=== PATIENT | female | born 1965 | race Caucasian/White ===

== ENCOUNTER 2024-01-29 08:08 | Outpatient (CLI) | payer BC, SELFPAY | END 2024-01-29 08:09 | disposition home or self-care (01) | LOC: ANHAUDASC 08:09 | PROVIDERS: PCP Family Medicine; Visit Provider Family Medicine | DX: H91.90 Unspecified hearing loss, unspecified ear (principal) | CPT/HCPCS: 92557; 92567 ==

== ENCOUNTER 2024-05-29 01:14 | Day surgery (SDC) | payer BC, SELFPAY ==
[2024-05-19 14:55] VITALS: BMI 29.5
--- OUTSIDE RECORDS SUMMARY | 2024-05-29 01:17 | XMS_ITS | Clinical Summary ---
Author Organization [facility] [employer] Address [address] 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 This disclosure is being madepursuant to the Care Everywhere program and may not contain all information available regarding this patient. Last updated 17.[facility] Allergies Active Allergy Reactions Criticality Noted Date Comments Sulfa Drugs Rash Medium 05/28/2013 Medications * Be aware that medications may not be up to date on this document. Alwaysverify current medications with the patient. Medication Sig Dispensed Refills Start Date End Date Status vitamin D, cholecalciferol, 2000 UNITS tablet Take 1 (one) tablet by mouth DAILY 12/11/2016 Active cycloSPORINE (RESTASIS) 0.05 % ophthalmic suspension 1 (one) drop by Ophthalmic route 2 times daily Active omeprazole (PRILOSEC) 20 MG capsule Take 1 (one) capsule by mouth as needed 05/18/2015 Active mometasone (NASONEX) 50 MCG/ACT nasal spray Calvin 1 (one) spray into each nostril once daily as needed 10/07/2017 Active FLUoxetine (PROZAC) 20 MG capsule 09/15/2019 Active valACYclovir (Valtrex) 1 GM tablet TAKE 2 TABLETS BY MOUTH EVERY 12 HOURS PER OUTBREAK. TAKE AT FIRST SIGN OF SYMPTOMS 12/19/2021 Active fluticasone-salm eterol (Advair/Wixela) 250-50 MCG/ACT inhaler INHALE 1 DOSE BY MOUTH TWICE DAILY 08/07/2022 Active telmisartan (Micardis) 80 MG tablet Take 1 (one) tablet by mouth once daily 04/08/2024 Active hydroxychloroqui ne (Plaquenil) 200 MG tablet TAKE 1 (ONE) TABLET BY MOUTH 2 TIMES DAILY 180 tablet 3 05/22/2024 Active hydroxychloroqui ne (Plaquenil) 200 MG tablet Take 1 (one) tablet by mouth 2 times daily 180 tablet 3 06/24/2023 Discontinued Active Problems Problem Noted Date Diagnosed Date Encounter for therapeutic drug level monitoring 02/08/2014 Sicca syndrome 05/28/2013 Encounters Date Type Department Care Team Description 05/22/2024 Refill [facility] - Rheumatology [address] [place] [phone] Yony Johns MD Refill Request 04/20/2024 1:40 PM AUTOMATION LEAD Office Visit [facility] - Rheumatology [address] [place] [phone] Yony Johns MD Sjogren's syndrome with keratoconjunctivitis sicca (Primary Dx) 04/20/2024 Travel from Last 3 Months Immunizations Name Administration Dates Next Due INFLUENZA VACCINE, TRIV. (AF LURIA, FLUZONE TRIVALENT; 6MO+) (IIV3) 11/18/2013 FLU VACCINE TRI IIV3 SPLIT PF IM (FLUVIRIN) 11/19 INFLUENZA VACCINE, QUADR. (F LUZONE; FLULAVAL; FLUARIX; AFLURIA QUADRIVALENT; 6MO+), 0.5 ML (IIV4) 01/02/2021,12/04/2017,12/17/2015 MODERNA SARS-COV-2 COVID-19 VACCINE 0.25ML 01/02,05/16/2020,04/18/2020 TDAP (7yrs+) 07/23/2017 iNFLUENZA VACCINE, RECOM-DECKER, QUADR. (FLUBLOCK QUADRIVALENT; 18Y+) (RIV4) 12/15/2019 Family History Medical History Relation Name Comments None Known Father None Known Mother Relation Name Status Comments Father Mother Social History Tobacco Use Types Packs/Day Years Used Date Smoking Tobacco: Never Smokeless Tobacco: Never Tobacco Cessation:Counseling Given: Not Answered Alcohol Use Standard Drinks/Week Comments No 0 (1 standard drink = 0.6 oz pur e alcohol) PHQ-2 Answer Date Recorded Patient Health Questionnaire-2 Score 0 04/01/2023 Sex and Gender Information Value Date Recorded Sex Assigned at Not on file Gender Identity Not on file Sexual Orientation Not on file Last Filed Vital Signs Vital Sign Reading Time Taken Comments Blood Pressure 139/81 04/20/2024 1:26 PM AUTOMATION LEAD Pulse 72 04/20/2024 1:26 PM AUTOMATION LEAD Temperature 36.1 C (96.9 F) 04/20/2024 1:26 PM AUTOMATION LEAD Respiratory Rate 18 12/11/2016 12:22 PM CDT Oxygen Saturation 97% 04/01/2023 1:23 PM AUTOMATION LEAD Inhaled Oxygen Concentration - - Weight 84.8 kg (187 lb) 04/20/2024 1:26 PM AUTOMATION LEAD Height 167.6 cm (5' 6 ) 04/20/2024 1:26 PM AUTOMATION LEAD Body Mass Index 30.18 04/20/2024 1:26 PM AUTOMATION LEAD Plan of Treatment Upcoming Encounters Date Type Department Care Team (Late st Contact Info) Description 12/21/2024 1:40 PM AUTOMATION LEAD Office Visit [facility] - Rheumatology [address] [place] [address], [place] [phone] Yony Johns MD [address] [place] [address] [place] [phone] Health Maintenance Due Date Last Done Comments COLOGUARD (AGES 45-75) - COLON CA SCREENING 1967 COLON MONITORING 1967 COLONOSCOPY - COLON CA SCREENING 1967 CT COLONOGRAPHY - COLON CA SCREENING 1967 Colorectal Cancer Screening 1967 FIT - COLON CA SCREENING 1967 FLEX SIG - COLON CA SCREENING 1967 LIPID TESTING 1967 MAMMOGRAM 1967 PAP SMEAR 1967 HIV SCREENING 1982 HEPATITIS C SCREENING 03/30/1985 HEPATITIS B VACCINE (1 of 3 - 19+ 3-dose series) 1986 PNEUMOCOCCAL VACCINE 50+ (1 of 1 - PCV) 2017 ZOSTER VACCINE (1 of 2) 2017 COVID-19 VACCINE (4 - 2023- season) 2023 01/02/2021, 05/16/2020, 04/18/2020 DEPRESSION SCREENING 02/19/2024 04/01/2023, 04/02/2022, 10/02/2021 INFLUENZA VACCINE (Season Ended) 2024 01/02/2021, 12/15/2019, 12/04/2017, Additional history exists SCREENING FOR DIABETES 05/14/2026 , 05/07/2022, 10/20/2021, Additional history exists DTAP/TDAP/TD VACCINES (2 - Td or Tdap) 07/24/2027 07/23/2017 HIB VACCINE Aged Out No longer eligi ble based on patient's age to complete this topic HPV VACCINE Aged Out No longer eligi ble based on patient's age to complete this topic MENINGOCOCCAL (Group B) VACCINE SHARED DECISION-MAKING Aged Out No longer eligible based on patient's age to complete this topic MENINGOCOCCAL GROUPS A/C/Y/W VACCINE Aged Out No longer eligible based on patient's age to complete this topic Procedures Procedure Name Priority Date/Time Associated Diagnosis Comments COMPREHENSIVE METABOLIC PANEL Routine 05/15/2023 8:37 AM CDT Sjogren's syndrome with keratoconjunctivitis sicca from Last 3 Months or Most Recently Relevant to Health Maintenance Results * COMPREHENSIVE METABOLIC PANEL (05/15/2023 8:37 AM CDT) Glucose 92 70 - 99 mg/dL [facility] BILL BUN 15 6 - 24 mg/dL [facility] B[facility] Creatinine 0.94 0.57 - 1.00 mg/dL [facility] INS[facility] BILL eGFR by CKD-EPI 71 >59 mL/min/1.7 3 [facility] INSUR[facility] BILL BUN/Creatinine Ratio 16 9 - 23 [facility] BILL Sodium 140 134 - 144 mmol/L [facility] BILL Potassium 4.5 3.5 - 5.2 mmol/L [facility] BILL Chloride 102 96 - 106 mmol/L [facility] BILL CO2 25 20 - 29 mmol/L [facility] BILL Calcium 9.8 8.7 - 10.2 mg/dL [facility] INS[facility] BILL Protein Total 7.1 6.0 - 8.5 g/dL [facility] BILL Albumin 4.3 3.8 - 4.9 g/dL [facility] BILL Globulin Total 2.8 1.5 - 4.5 g/dL [facility] INSURANCE BILL Albumin/Globulin Ratio 1.5 1.2 - 2.2 [facility] BILL Bilirubin Total 1.0 0.0 - 1.2 mg/dL [facility] INSURANCE BILL Alkaline Phosphatase 68 44 - 121 IU/L [facility] BILL AST 21 0 - 40 IU/L [facility] INSURANCE BILL ALT 17 0 - 32 IU/L [facility] INSURANCE BILL Comment:FASTING Blood BLOOD SPECIMEN / Unknown 05/15/2023 8:37 AM CDT 05/15/2023 Narrative Resulting Agency Comment Lab Testing performed at: [facility] [address] [phone] Yony Johns MD LAB - CHEMISTRY FENG [facility] INSURANCE BILL [address] [place] [address] from Last 3 Months or Most Recently Relevant to Health Maintenance Care Teams Sleeve Presser Operator Relationship Specialty Start Date End Date Darin Salas MD [address] [place] [phone] PCP - General 09/30/21
[2024-05-29 07:02] VITALS: BP 129/71; PULSE 77; RESP 18; TEMP 36.7; O2SAT 97; BMI 29.3
[2024-05-29] MEDS: LACTATED RINGERS 1,000 ML 150 ML IV CONT (07:09)
--- NOTE | 2024-05-29 07:56 | WPDANESEPPF ---
Anes - Initial Pre Proc Eval Procedure: Operation Date: 05/29/24 08:30 Proposed Procedures p Screening Colonoscopy - Madi Arias MD Date/Time: 05/29/24 07:56 Surgeon: Madi Arias MD Pre Op Diagnosis: screening colon Patient Data Age: 59 Gender: F Height: 1.68 m Weight: 82.4 kg Last Vital Signs Temp 98.1 F 05/29/24 07:02 Pulse 77 05/29/24 07:02 Resp 18 05/29/24 07:02 BP 129/71 05/29/24 07:02 Pulse Ox 97 05/29/24 07:02 O2 Del Method Room Air 05/29/24 07:02 Allergies Allergy/AdvReac Type Severity Reaction Status Date / Time Sulfa (Sulfonamide Allergy Unknown RASH Verified 05/29/24 07:01 Antibiotics) hydrochlorothiazide Allergy Photosensit Verified 05/29/24 07:01 ivity Home Medications ?Medication ?Instructions ?Recorded ?Confirmed ?Type cyclosporine 0.05 % eye drops 1 drop ophthalmic (eye) ONCE 03/25/19 05/29/24 History (Restasis MultiDose) hydroxychloroquine 200 mg tablet 200 mg PO BID 03/25/19 05/29/24 History (Plaquenil) cholecalciferol (vitamin D3) 25 25 mcg PO DAILY 08/19/19 05/29/24 History mcg (1,000 unit) capsule omeprazole 20 mg capsule,delayed 20 mg PO DAILY 08/19/19 05/29/24 History release pseudoephedrine HCl 120 mg 120 mg PO Q12H PRN nasal congestion 08/19/19 05/19/24 History tablet,extended release (Sudafed 12 Hour) metoprolol succinate 25 mg See Rx Instructions .Route 02/24/21 05/19/24 Rx tablet,extended release 24 hr .COMPLEX #90 tabs fluoxetine 20 mg capsule See Rx Instructions .Route 03/27/23 05/29/24 Rx .COMPLEX #90 caps telmisartan 40 1 tablet PO DAILY #90 tabs 05/08/23 05/19/24 Rx mg-hydrochlorothiazide 12.5 mg tablet (Micardis HCT) fluticasone 250 mcg-salmeterol 50 1 inh inhalation BID #180 ea 11/25/23 05/29/24 Rx mcg/dose blistr powdr for inhalation (Advair Diskus) telmisartan 80 mg tablet 80 mg PO DAILY #90 tabs 01/10/24 05/29/24 Rx valacyclovir 1 gram tablet 2,000 mg (2 x 1 gram) PO Q12H #12 02/27/24 05/19/24 Rx tabs cetirizine 10 mg tablet (24Hour 10 mg PO DAILY PRN allergy symptoms 05/19/24 05/19/24 History Allergy) omega 7-pxx-yme-fish oil 1,000 mg 1 cap PO DAILY 05/19/24 05/29/24 History (120 mg-180 mg) capsule (Fish Oil) Patient hx anesthesia problems: none Family hx anesthesia problems: none Results Review: All pre-operative results and documents have been reviewed as part of the pre-operative evaluation. [facility] Family History Family History Father Diabetes mellitus Social History Social History Smoking status: Never smoker Alcohol intake: never Substance use: never Substance use type: does not use Lack of Transportation: No Lack of Food: Sometimes True Current Housing: I Have Housing Concerned About Future Housing: No Difficulty Paying Gas/Electric Bills: No Difficulty Paying for Meds: No Currently Unemployed: No Education: Associate Degree Difficulty w/ Childcare or Family Care: No Living arrangements: with family Spiritual care concerns: No Anes - Eval Final PreProcedure Day of Procedure 05/29/24 07:56 Patient weight: normal Heart: regular rate and rhythm Lungs: clear to auscultation Airway: Mallampati scale class II Neurological: alert and oriented Last oral intake: >/= 8 hours ASA classification: II Emergent: no Anesthetic plan: proceed Anesthesia type and monitoring: general GIVS and standard monitoring Results Review: All pre-operative results and documents have been reviewed as part of the pre-operative evaluation. Informed Consent: The patient's anesthetic plan and its attendant risks and benefits were discussed with the patient/family/POA. Questions were solicited and answers provided to the satisfaction of the patient/family/POA.
--- NOTE | 2024-05-29 08:26 | PM.IMHP ---
H&P: HPI History of Present Illness Date/Time: 05/29/24 08:26 Chief Complaint: Screening colonoscopy Narrative: This is the patient's first colonoscopy. There are no GI symptoms and there is no family history of colorectal cancer. Review of Systems Review of Systems: All systems reviewed & are unremarkable except as noted in HPI and below PMFSH Family History Family History Father Diabetes mellitus Social History Social History Smoking status: Never smoker Alcohol intake: never Substance use: never Substance use type: does not use Lack of Transportation: No Lack of Food: Sometimes True Current Housing: I Have Housing Concerned About Future Housing: No Difficulty Paying Gas/Electric Bills: No Difficulty Paying for Meds: No Currently Unemployed: No Education: Associate Degree Difficulty w/ Childcare or Family Care: No Living arrangements: with family Spiritual care concerns: No Meds Home Medications and Allergies Home Medications ?Medication ?Instructions ?Recorded ?Confirmed ?Type cyclosporine 0.05 % eye drops 1 drop ophthalmic (eye) ONCE 03/25/19 05/29/24 History (Restasis MultiDose) hydroxychloroquine 200 mg tablet 200 mg PO BID 03/25/19 05/29/24 History (Plaquenil) cholecalciferol (vitamin D3) 25 25 mcg PO DAILY 08/19/19 05/29/24 History mcg (1,000 unit) capsule omeprazole 20 mg capsule,delayed 20 mg PO DAILY 08/19/19 05/29/24 History release pseudoephedrine HCl 120 mg 120 mg PO Q12H PRN nasal congestion 08/19/19 05/19/24 History tablet,extended release (Sudafed 12 Hour) metoprolol succinate 25 mg See Rx Instructions .Route 02/24/21 05/19/24 Rx tablet,extended release 24 hr .COMPLEX #90 tabs fluoxetine 20 mg capsule See Rx Instructions .Route 03/27/23 05/29/24 Rx .COMPLEX #90 caps telmisartan 40 1 tablet PO DAILY #90 tabs 05/08/23 05/19/24 Rx mg-hydrochlorothiazide 12.5 mg tablet (Micardis HCT) fluticasone 250 mcg-salmeterol 50 1 inh inhalation BID #180 ea 11/25/23 05/29/24 Rx mcg/dose blistr powdr for inhalation (Advair Diskus) telmisartan 80 mg tablet 80 mg PO DAILY #90 tabs 01/10/24 05/29/24 Rx valacyclovir 1 gram tablet 2,000 mg (2 x 1 gram) PO Q12H #12 02/27/24 05/19/24 Rx tabs cetirizine 10 mg tablet (24Hour 10 mg PO DAILY PRN allergy symptoms 05/19/24 05/19/24 History Allergy) omega 1-wyj-slv-fish oil 1,000 mg 1 cap PO DAILY 05/19/24 05/29/24 History (120 mg-180 mg) capsule (Fish Oil) Allergies Allergy/AdvReac Type Severity Reaction Status Date / Time Sulfa (Sulfonamide Allergy Unknown RASH Verified 05/29/24 07:01 Antibiotics) hydrochlorothiazide Allergy Photosensit Verified 05/29/24 07:01 ivity Vital Signs Vital Signs - 24 hr 05/29/24 07:02 Temperature 98.1 F Pulse Rate 77 Respiratory Rate 18 Blood Pressure 129/71 Pulse Oximetry 97 Oxygen Delivery Room Air Exam Const: General: cooperative and healthy appearing Resp: Effort & Inspection: normal respiratory effort and able to speak in complete sentences Auscultation: clear to auscultation bilaterally Cardio: Rate: regular rate Rhythm: regular rhythm GI: Inspection: normal to inspection GI Palp: No No hepatosplenomegaly present Auscultation: normal bowel sounds Rectal Exam: deferred Skin: General skin exam: normal color Psych: Appearance: grossly normal Mental Status: mental status grossly normal Assessment and Plan Assessment and plan (1) Colon cancer screening: Code(s): Z12.11 - Encounter for screening for malignant neoplasm of colon Status: Acute Assessment and Plan: The patient is deemed a good candidate for the procedure. Consent signed. Will proceed.
[2024-05-29 08:52] VITALS: BP 115/63; PULSE 77; RESP 23; O2SAT 99
[2024-05-29 09:02] VITALS: BP 122/72; PULSE 78; RESP 22; O2SAT 99
[2024-05-29 09:12] VITALS: BP 104/69; PULSE 64; RESP 20; O2SAT 99
== END 2024-05-29 09:20 | disposition home or self-care (01) ==
PROVIDERS: PCP Family Medicine; Referring Provider Family Medicine; Visit Provider Internal Medicine Gastroenterology
PROC: 0DJD8ZZ Inspection of Lower Intestinal Tract, Via Natural or Artificial Opening Endoscopic (ICD-10-PCS; CPT 45378; principal; 2024-05-29 08:30)
DX: Z12.11 Encounter for screening for malignant neoplasm of colon (principal); K64.8 Other hemorrhoids; Z79.51 Long term (current) use of inhaled steroids
CPT/HCPCS: 45378; J2003; J2704; J7120